=== PATIENT | female | born 1990 | race Caucasian/White ===

== ENCOUNTER 2023-06-29 07:08 | Day surgery (SDC) | payer OTHER ==
[~2023-06-29] VITALS: Ht 162.6 cm; Wt 99.8 kg
[~2023-06-29 07:08] MED LIST: ceFAZolin SODIUM 2 GM in D5W 50 ML IV ONE
[2023-06-29 07:30] LABS: HCG,QUAL RESULT NEGATIVE (NEGATIVE)
[2023-06-29] MEDS ORDERED: MIDAZOLAM HCL/PF 2 MG/2 ML SYRINGE ONE (07:40)
[2023-06-29] MEDS ORDERED: ROCURONIUM BROMIDE 10 MG/ML (ZEMURON) ONE (07:40)
[2023-06-29] MEDS ORDERED: PROPOFOL 200MG/ 20ML VIAL (DIPRIVAN) IV ONE (07:40)
[2023-06-29] MEDS ORDERED: ONDANSETRON HCL 4 MG/2 ML VIAL ONE (07:40)
[2023-06-29] MEDS ORDERED: DEXAMETHASONE SOD PHOSPHATE 4 MG/ML VIAL ONE (07:40)
[2023-06-29] MEDS ORDERED: DESFLURANE 15 MIN GAS INH ONE (07:40)
[2023-06-29] MEDS ORDERED: NS 1000 ML IV.SOLN IV ONE (07:40)
[2023-06-29] MEDS ORDERED: fentaNYL CITRATE/PF 100 MCG/2 ML AMP ONE (07:40)
[2023-06-29] MEDS ORDERED: BUPIVACAINE /PF 0.25% 30 ML VIAL INJ ONE (07:40)
[2023-06-29] MEDS ORDERED: WATER FOR IRRIGATION,STERILE 1,000 ML IRRIG.SOLN IR ONE (07:40)
[2023-06-29] MEDS ORDERED: SUGAMMADEX SODIUM 200 MG/2 ML VIAL IV ONE (07:40)
[2023-06-29] MEDS ORDERED: KETOROLAC TROMETHAMINE 30 MG VIAL ONE (07:40)
[2023-06-29] MEDS ORDERED: NS IRRIG SOLN 1000 ML IR ONE (07:40)
[2023-06-29 07:52] VITALS: O2SAT 0
[2023-06-29] MEDS ORDERED: ACETAMINOPHEN I.V. 1000 MG 100 ML IV ONE (08:09)
[2023-06-29] MEDS ORDERED: LABETALOL 100 MG/ 20ML VIAL IVP PRN (08:45)
[2023-06-29] MEDS ORDERED: HYDROmorphone 1 MG/ML INJ. CARTRIDGE IVP PRN (08:45)
[2023-06-29] MEDS ORDERED: hydrALAZINE HCL 20 MG/ML VIAL IVP PRN (08:45)
[2023-06-29] MEDS ORDERED: MEPERIDINE HCL/PF 25 MG/ML DISP.SYRIN IVP PRN (08:45)
[2023-06-29] MEDS ORDERED: MIDAZOLAM HCL 2 MG/2 ML VIAL (VERSED) IVP PRN (08:45)
[2023-06-29] MEDS ORDERED: LR 1,000 ML IV SCH (08:45)
[2023-06-29] MEDS ORDERED: D5/0.45 NS 1,000 ML IV SCH (09:30)
[2023-06-29] MEDS ORDERED: HYDROcodone/ACETAMIN 5-325 MG TAB (NORCO/ VICODIN) PO PRN ×2 (09:30)
[2023-06-29] MEDS: METOCLOPRAMIDE HCL 10 MG/2 ML VIAL IVP PRN (09:50)
[2023-06-29] MEDS ORDERED: METOCLOPRAMIDE HCL 10 MG/2 ML VIAL ONE (09:53)
[2023-06-29] MEDS: HYDROmorphone 1 MG/ML INJ. CARTRIDGE IVP PRN (10:03)
[2023-06-29] MEDS ORDERED: HYDROmorphone 1 MG/ML INJ. CARTRIDGE ONE (10:03)
[2023-06-29 11:10] VITALS: BP_SYST 113; PULSE 67; RESP 18
== END 2023-06-29 12:10 | disposition home or self-care (01) ==
LOC: SMU 07:08 → SDS 07:08
PROVIDERS: ATTEND Colon & Rectal Surgery
DX: K80.10 Calculus of gallbladder with chronic cholecystitis without obstruction (principal); E03.9 Hypothyroidism, unspecified; Z79.890 Hormone replacement therapy; Z83.49 Family history of other endocrine, nutritional and metabolic diseases; Z82.0 Family history of epilepsy and other diseases of the nervous system
CPT/HCPCS: 47563; 87081; 84703; 88304; J3490 ×2; J1100; J1885; J2765; J3465; J2405; J2704; J3010; J1170; Q9967; J7060; J7030; C1758; C1727; J0131; 76000